=== PATIENT | male | born 1980 | race Caucasian/White ===

== ENCOUNTER 2022-07-21 02:09 | Emergency (ER) | payer OTHER ==
[~2022-07-21] VITALS: Ht 172.7 cm; Wt 90.7 kg
--- NOTE | 2022-07-21 02:09 | NUR ---
PREBOOK TOVA GRANT TO ROXANA
[2022-07-21 02:16] VITALS: BP 128/74
--- NOTE | 2022-07-21 02:50 | NUR ---
ZEENAT IBRAHIM ASSESSING PT.
[2022-07-21 03:07] VITALS: BP 129/82
--- NOTE | 2022-07-21 03:07 | NUR ---
PATIENT [facility] [place] [employer]. PATIENT EXAMINED BY DR. IBRAHIM. PATIENT MEDICALLY CLEARED AND RELEASED IN CUSTODY IN STABLE CONDITION. ORIGINAL PRE-BOOK FORM GIVEN TO OFFICER TORI.
== END 2022-07-21 03:07 | disposition home or self-care (01) ==
LOC: MED 02:09
DX: S10.91XA Abrasion of unspecified part of neck, initial encounter (principal); S60.512A Abrasion of left hand, initial encounter; S60.511A Abrasion of right hand, initial encounter; V89.2XXA Person injured in unspecified motor-vehicle accident, traffic, initial encounter; Y93.89 Activity, other specified; Y92.410 Unspecified street and highway as the place of occurrence of the external cause; Y99.8 Other external cause status
CPT/HCPCS: 99283